=== PATIENT | female | born 1965 | race Caucasian/White ===

== ENCOUNTER → 2025-04-24 09:21 | Outpatient (REF) | payer OTHER, SELFPAY | LOC: RCS 09:21 | PROVIDERS: ATTENDING PHYSICIAN Internal Medicine | DX: R55 Syncope and collapse (principal) | CPT/HCPCS: 93306 ==

== ENCOUNTER → 2025-04-28 08:48 | Outpatient (REF) | payer OTHER, SELFPAY | LOC: RCS 08:48 | PROVIDERS: ATTENDING PHYSICIAN Internal Medicine | DX: R55 Syncope and collapse (principal) | CPT/HCPCS: 93225; 93226 ==

== ENCOUNTER 2025-05-10 06:20 | Day surgery (SDC) | payer OTHER, SELFPAY | END 2025-05-10 08:43 | disposition home or self-care (01) | LOC: GI 06:20 | PROVIDERS: ATTENDING PHYSICIAN Internal Medicine Gastroenterology | DX: Z12.11 Encounter for screening for malignant neoplasm of colon (principal); K57.30 Diverticulosis of large intestine without perforation or abscess without bleeding; K64.8 Other hemorrhoids; D12.2 Benign neoplasm of ascending colon | CPT/HCPCS: 45380; 88305 ==

== ENCOUNTER → 2025-06-22 13:39 | Outpatient (REF) | payer OTHER, SELFPAY | LOC: RAD 13:39 | PROVIDERS: ATTENDING PHYSICIAN Internal Medicine | DX: M25.50 Pain in unspecified joint (principal); M25.649 Stiffness of unspecified hand, not elsewhere classified | CPT/HCPCS: 73120 ==

== ENCOUNTER → 2025-08-13 15:02 | Outpatient (REF) | payer OTHER, SELFPAY | LOC: HWRAD 15:02 | PROVIDERS: ATTENDING PHYSICIAN Internal Medicine | DX: E07.89 Other specified disorders of thyroid (principal) | CPT/HCPCS: 76536 ==